=== PATIENT | male | born 1990 | race Caucasian/White ===

== ENCOUNTER 2019-05-21 17:20 | Inpatient (IN) | payer OTHER ==
[2019-05-21 18:08] VITALS: BMI 30.1
[2019-05-21] MEDS ORDERED: IBUPROFEN 400 MG TABLET (FP) PO PRN (19:51)
[2019-05-21] MEDS ORDERED: MENTHOL/PHENOL 1 EACH UD MM PRN (19:51)
[2019-05-21] MEDS ORDERED: MAGNESIUM CITRATE 300 ML BOTTLE PO PRN (19:51)
[2019-05-21] MEDS ORDERED: MAGNESIUM HYDROX 2400MG/30ML ORAL SUSPENSION 30 ML CUP PO PRN (19:51)
[2019-05-21] MEDS ORDERED: MAG HYDROX/AL HYDROX/SIMETH 30 ML UNIT-DOSE CUP PO PRN (19:51)
[2019-05-21] MEDS ORDERED: ACETAMINOPHEN 325 MG TABLET (FP) PO PRN ×2 (19:51)
[2019-05-21] MEDS ORDERED: BISMUTH SUBSALICYLATE 524 MG/30 ML UD PO PRN (19:51)
--- NOTE | 2019-05-21 19:51 | HP ---
COWS - Scale Resting Pulse: 0= [place] 80 or Below Sweatin= Chills/Flushing Restless Observation: 1= Difficult to Sit Still Pupil Size: 0= Normal to Room Light Bone or Joint Aches: 2= Severe Diffuse Aches Runny Nose/ Eye Tearin= None GI Upset > 30mins: 2= Nausea/Diarrhea Tremor Observation: 1= Tremor [place], Not Seen Yawning Observation: 1= 1-2x During Session Anxiety or Irritability: 2=Irritable/Anxious Goose Flesh Skin: 0=Smooth Skin COWS Score: 10 CIWA Score - Admission Criteria OASAS Guidelines: Admission for Medically Managed Detox: Requires at least one of the followin. CIWA greater than 12 2. Seizures within the past 24 hours 3. Delirium tremens within the past 24 hours 4. Hallucinations within the past 24 hours 5. Acute intervention needed for co occurring medical disorder 6. Acute intervention needed for co occurring psychiatric disorder 7. Severe withdrawal that cannot be handled at a lower level of care (continued vomiting, continued diarrhea, abnormal vital signs) requiring intravenous medication and/or fluids 8. Admission ROS S - HPI Allergies/Adverse Reactions: Allergies Allergy/AdvReac Type Severity Reaction Status Date / Time No Known Allergies Allergy Verified 05/21/19 18:03 History of Present Illness: pt here requesting detox from opiate use , reports fentanyl pills 6 /day , denies IV use , reports use since 1 yrs ago , denies prior tx . latest use 5 am today denies heroin use cocaine since age 16 , currently 2 x /week tobacco : 1/2 ppd not interested in smoking cessation denies other illicits pmhx : hiv dx 2 yrs ago , on Biktarvy ( did not bring meds, pharmacy of c= record called, no answer to verify meds ) denies SI / HI . Exam Limitations: Clinical Condition - Ebola screening Have you traveled outside of the country in the last 21 days: No (N) Have you had contact with anyone from an Ebola affected area: No Do you have a fever: No - Review of Systems Constitutional: See HPI EENT: reports: No Symptoms Reported Respiratory: reports: No Symptoms reported Cardiac: reports: No Symptoms Reported GI: reports: See HPI, Constipated, Nausea, Poor Appetite : reports: No Symptoms Reported Musculoskeletal: reports: Back Pain Integumentary: reports: No Symptoms Reported Neuro: reports: No Symptoms reported Endocrine: reports: No Symptoms Reported Psychiatric: reports: Orientated x3, Anxious, Depressed Patient History - Smoking Cessation Smoking history: Current every day smoker Have you smoked in the past 12 months: Yes Hx Chewing Tobacco Use: No Initiated information on smoking cessation: No - Substances abused Alcohol Substance route: Oral Frequency: 1-2 times per week Amount used: 3 cups vodka Age of first use: 15 Date of last use: 05/19/19 Other Other (specify): FENTANYL Substance route: Oral Frequency: Daily Amount used: 6 PILLS Age of first use: 26 Date of last use: 05/20/19 Cocaine Substance route: Inhalation Frequency: 1-2 times per week Amount used: 1 BAG=$25 Age of first use: 16 Date of last use: 05/20/19 Admission Physical Exam [facility]HS - Vital Signs Vital Signs: Vital Signs - 24 hr 05/21/19 17:53 Temperature 99 F Pulse Rate 87 Respiratory 18 Rate Blood Pressure 132/87 - Physical General Appearance: Yes: Mild Distress, Irritable, Anxious HEENTM: Yes: EOMI, Hearing grossly Normal, Normocephalic, Normal Voice Respiratory: Yes: Chest Non-Tender, Lungs Clear, Normal Breath Sounds, No Respiratory Distress, No Accessory Muscle Use Neck: Yes: No masses,lesions,Nodules, Trachea in good position Cardiology: Yes: Regular Rhythm, Regular Rate, S1, S2 Abdominal: Yes: Non Tender, Soft Musculoskeletal: Yes: Gait Steady Extremities: Yes: Normal Range of Motion, Non-Tender, Tremors Neurological: Yes: Alert, Motor Strength 5/5, Depressed Affect Integumentary: Yes: Warm, Clammy - Diagnostic (1) Opioid use disorder Current Visit: Yes Status: Chronic (2) Cocaine dependence Current Visit: Yes Status: Chronic Qualifiers: Substance use status: uncomplicated Qualified Code(s): F14.20 - Cocaine dependence, uncomplicated (3) Nicotine dependence Current Visit: Yes Status: Chronic Qualifiers: Nicotine product type: cigarettes (4) MDMA abuse Current Visit: Yes Status: Chronic Breathalyzer - Breathalyzer Breathalyzer: 0 Urine Drug Screen - Test Device Lot number: [id number] Expiration date: 11/29/20 - Results Drug screen NEGATIVE: No Urine drug screen results: ZOE-Cocaine, MET-Methamphetamine, FEN-Fentanyl, MOP- Opiates Inpatient Rehab Admission - Rehab Decision to Admit Inpatient rehab admission?: No
[2019-05-21] MEDS ORDERED: METHADONE HCL 10 MG TABLET (FOR DETOX USE ONLY) PO ONE (19:58)
[2019-05-21] MEDS: cloNIDine HCL 0.1 MG TABLET PO PRN (22:05)
[2019-05-21] MEDS: MELATONIN 5 MG TABLETS PO PRN (22:05)
[2019-05-21] MEDS: THIAMINE HCL 100 MG TABLET (FP) PO SCH (22:05)
[2019-05-21] MEDS: NICOTINE POLACRILEX 2 MG GUM BUC PRN (22:42)
[2019-05-22 09:29] LABS: HEMATOCRIT 41.4 % (35.4-49); HEMOGLOBIN 14.3 GM/dL (11.7-16.9); MCH 30.9 pg (25.7-33.7); MCHC 34.6 g/dl (32.0-35.9); MEAN CELL VOLUME 89.4 fl (80-96); MEAN PLT VOLUME 8.5 fl (7.5-11.1); PLATELET COUNT 306 K/MM3 (134-434); RBC 4.63 M/mm3 (4.00-5.60); WHITE BLOOD COUNT 7.6 K/mm3 (4.0-10.0)
[2019-05-22] MEDS ORDERED: METHADONE HCL 5 MG TABLET (FOR DETOX USE ONLY) PO ONE (10:00)
[2019-05-22] MEDS: PRENATAL VITAMINS W/ FOLIC ACID TABLET (FP) PO SCH (10:23)
[2019-05-22] MEDS: NICOTINE POLACRILEX 2 MG GUM BUC PRN (10:25)
--- NOTE | 2019-05-22 10:47 | PN ---
BHS COWS - Scale Resting Pulse: 1= [place] 81-100 Sweatin= No chills or Flushing Restless Observation: 0= Sits Still Pupil Size: 1= Pupils >than Normal Bone or Joint Aches: 0= None Runny Nose/ Eye Tearin= None GI Upset > 30mins: 0= None Tremor Observation of Outstretched Hands: 1= Tremor [place], Not Seen Yawning Observation: 0= None Anxiety or Irritability: 2=Irritable/Anxious Goose Flesh Skin: 3=Piloerection COWS Score: 8 BHS Progress Note (SOAP) Subjective: 28 years old male admitted on 05/21/19 for opiate withdrawal sx management treating with methadone detox regimen reports having long history of anxiety requests to be seen by a psychiatrist psychiatrist referral Objective: 05/22/19 10:49 Vital Signs Temperature 99.2 F 05/22/19 09:21 Pulse Rate 87 05/22/19 09:21 Respiratory Rate 16 05/22/19 09:21 Blood Pressure 122/80 05/22/19 09:21 O2 Sat by Pulse Oximetry (%) Laboratory Last Values WBC 7.6 K/mm3 (4.0-10.0) 05/22/19 07:45 RBC 4.63 M/mm3 (4.00-5.60) 05/22/19 07:45 Hgb 14.3 GM/dL (11.7-16.9) 05/22/19 07:45 Hct 41.4 % (35.4-49) 05/22/19 07:45 MCV 89.4 fl (80-96) 05/22/19 07:45 MCH 30.9 pg (25.7-33.7) 05/22/19 07:45 MCHC 34.6 g/dl (32.0-35.9) 05/22/19 07:45 RDW 13.0 % (11.9-15.9) 05/22/19 07:45 Plt Count 306 K/MM3 (134-434) 05/22/19 07:45 MPV 8.5 fl (7.5-11.1) 05/22/19 07:45 RPR Titer Nonreactive (NONREACTIVE) 05/22/19 07:45 lab noted Assessment: 05/22/19 10:56 Vital Signs 05/22/19 10:58 opiate withdrawal Plan: methadone regiment
[2019-05-22] MEDS: METHOCARBAMOL 500 MG TABLET PO PRN ×2 (10:48→22:41)
[2019-05-22] MEDS: hydrOXYzine PAMOATE 25 MG CAPSULE (FP) PO PRN (10:48)
[2019-05-22 11:05] LABS: ALBUMIN 3.7 g/dl (3.4-5.0); BILIRUBIN,TOTAL 0.4 mg/dL (0.2-1); BLOOD UREA NITROGEN 16.4 mg/dL (7-18); CALCIUM 9.8 mg/dL (8.5-10.1); CREATININE 1.1 mg/dL (0.55-1.3); POTASSIUM 4.5 mmol/L (3.5-5.1); TOT PROT 7.1 g/dl (6.4-8.2)
--- NOTE | 2019-05-22 11:31 | EKG ---
Test Reason : Blood Pressure : / mmHG Vent. Rate : 067 BPM Atrial Rate : 067 BPM P-R Int : 162 ms QRS Dur : 098 ms QT Int : 420 ms P-R-T Axes : 059 076 055 degrees QTc Int : 443 ms NORMAL SINUS RHYTHM WITH SINUS ARRHYTHMIA NORMAL ECG NO PREVIOUS ECGS AVAILABLE Confirmed by Franklin Buckley MD ([id number]) on 05/22/2019 11:31:44 AM Referred By: Confirmed By:Franklin Buckley MD
[2019-05-22] MEDS: THIAMINE HCL 100 MG TABLET (FP) PO SCH (22:40)
[2019-05-22] MEDS: MELATONIN 5 MG TABLETS PO PRN (22:41)
[2019-05-22] MEDS: cloNIDine HCL 0.1 MG TABLET PO PRN (22:41)
[2019-05-23] MEDS: METHOCARBAMOL 500 MG TABLET PO PRN (06:35)
[2019-05-23] MEDS: hydrOXYzine PAMOATE 25 MG CAPSULE (FP) PO PRN (06:35)
[2019-05-23 09:22] VITALS: BP 123/82; PULSE 86; TEMP 96.6
[2019-05-23] MEDS: PRENATAL VITAMINS W/ FOLIC ACID TABLET (FP) PO SCH (09:35)
[2019-05-23] MEDS ORDERED: METHADONE HCL 10 MG TABLET (FOR DETOX USE ONLY) PO ONE (10:00)
--- NOTE | 2019-05-23 10:30 | EKG ---
Test Reason : Blood Pressure : / mmHG Vent. Rate : 057 BPM Atrial Rate : 057 BPM P-R Int : 186 ms QRS Dur : 098 ms QT Int : 440 ms P-R-T Axes : 065 074 044 degrees QTc Int : 428 ms SINUS BRADYCARDIA OTHERWISE NORMAL ECG NO PREVIOUS ECGS AVAILABLE Confirmed by SHYANN MAC, MAGALIS ([id number]) on 05/23/2019 10:29:41 AM Referred By: Confirmed By:MAGALIS BOOTHE MD
--- NOTE | 2019-05-23 10:38 | DS ---
[facility] Detox Discharge Summary Admission Date: 05/21/19 Discharge Date: 05/23/19 - History Present History: Opioid Dependence Additional Comments: 28 years old male admitted on 05/21/19 for opiate withdrawal sx management treated with methadone detox regimen patient is alert oriented x 3 speech clearly coherently steady gait patient prefers to leave the detox today case discussed with the nurse routine discharge is appropriated respiratory clear lungs bilaterally on auscultation extremities full range of motion skin warm and dry - Physical Exam Results Vital Signs: Vital Signs Temperature 96.6 F L 05/23/19 09:21 Pulse Rate 86 05/23/19 09:21 Respiratory Rate 18 05/23/19 09:21 Blood Pressure 123/82 05/23/19 09:21 O2 Sat by Pulse Oximetry (%) Pertinent Admission Physical Exam Findings: opiate withdrawal Laboratory Last Values WBC 7.6 K/mm3 (4.0-10.0) 05/22/19 07:45 RBC 4.63 M/mm3 (4.00-5.60) 05/22/19 07:45 Hgb 14.3 GM/dL (11.7-16.9) 05/22/19 07:45 Hct 41.4 % (35.4-49) 05/22/19 07:45 MCV 89.4 fl (80-96) 05/22/19 07:45 MCH 30.9 pg (25.7-33.7) 05/22/19 07:45 MCHC 34.6 g/dl (32.0-35.9) 05/22/19 07:45 RDW 13.0 % (11.9-15.9) 05/22/19 07:45 Plt Count 306 K/MM3 (134-434) 05/22/19 07:45 MPV 8.5 fl (7.5-11.1) 05/22/19 07:45 Sodium 138 mmol/L (136-145) 05/22/19 07:45 Potassium 4.5 mmol/L (3.5-5.1) 05/22/19 07:45 Chloride 106 mmol/L (98-107) 05/22/19 07:45 Carbon Dioxide 29 mmol/L (21-32) 05/22/19 07:45 Anion Gap 3 MMOL/L (8-16) L 05/22/19 07:45 BUN 16.4 mg/dL (7-18) 05/22/19 07:45 Creatinine 1.1 mg/dL (0.55-1.3) 05/22/19 07:45 Est GFR (CKD-EPI)AfAm 103.85 05/22/19 07:45 Est GFR (CKD-EPI)NonAf 89.61 05/22/19 07:45 Random Glucose 98 mg/dL (74-106) 05/22/19 07:45 Calcium 9.8 mg/dL (8.5-10.1) 05/22/19 07:45 Total Bilirubin 0.4 mg/dL (0.2-1) 05/22/19 07:45 AST 30 U/L (15-37) 05/22/19 07:45 ALT 40 U/L (13-61) 05/22/19 07:45 Alkaline Phosphatase 129 U/L (45-117) H 05/22/19 07:45 Total Protein 7.1 g/dl (6.4-8.2) 05/22/19 07:45 Albumin 3.7 g/dl (3.4-5.0) 05/22/19 07:45 RPR Titer Nonreactive (NONREACTIVE) 05/22/19 07:45 lab noted - Treatment Hospital Course: Detox Protocol Followed, Detoxed Safely, Responded well, Discharged Condition Good, Rehab Referral Accepted Patient has Accepted [facility] - Medication Discharge Medications: Ambulatory Orders Naloxone HCl [Narcan] 4 mg NS ASDIR PRN #1 spray 05/22/19 - Diagnosis (1) Opioid dependence with withdrawal Status: Acute (2) Nicotine dependence Status: Acute Qualifiers: Nicotine product type: cigarettes Substance use status: in withdrawal Qualified Code(s): F17.213 - Nicotine dependence, cigarettes, with withdrawal - AMA Did Patient Leave Against Medical Advice: No COWS (PN) - Opiate Withdrawal Resting Pulse: 1= [place] 81-100 Sweatin= No chills or Flushing Restless Observation: 0= Sits Still Pupil Size: 0= Normal to Room Light Bone or Joint Aches: 1= Mild Discomfort Runny Nose/ Eye Tearin= None GI Upset > 30mins: 0= None Tremor Observation of Outstretched Hands: 0= None Yawning Observation: 1= 1-2x During Session Anxiety or Irritability: 0= None Goose Flesh Skin: 0=Smooth Skin COWS Score: 3
[2019-05-24] MEDS ORDERED: METHADONE HCL 5 MG TABLET (FOR DETOX USE ONLY) PO ONE (06:00)
== END 2019-05-23 11:14 | disposition home or self-care (01) | DRG 897 ==
LOC: YASAS 17:20 → Y3N 19:58
PROVIDERS: ADMIT Allergy & Immunology; ATTEND Allergy & Immunology
PROC: HZ2ZZZZ Detoxification Services for Substance Abuse Treatment (ICD-10-PCS; principal; 2019-05-21)
DX: F11.23 Opioid dependence with withdrawal (principal); F14.20 Cocaine dependence, uncomplicated; F10.20 Alcohol dependence, uncomplicated; F16.10 Hallucinogen abuse, uncomplicated; F17.213 Nicotine dependence, cigarettes, with withdrawal; F41.9 Anxiety disorder, unspecified; Z21 Asymptomatic human immunodeficiency virus [HIV] infection status
CPT/HCPCS: 36415; 80053; 85027; 86593; 93005; 93010; J0735